=== PATIENT | female | born 1980 | race American Indian/Alaskan Native ===

== ENCOUNTER 2017-06-22 09:46 | Inpatient (IN) | payer BC, OTHER ==
[~2017-06-22 09:46] MED LIST: PRENATAL VITAMIN PO
--- NOTE | 2017-07-10 08:48 | NUR ---
07/10/17 0848 Tamie Flores 0840- PT ARRIVED TO PACU. MAINTAINING OWN AIRWAY. DENIES PAIN AND NAUSEA
--- NOTE | 2017-07-11 09:16 | PR ---
[facility] [address] [facility] [place], [place] [address] Signed PP Progress Notes Datetime Report Generated by CPN: 07/11/2017 09:16 SUBJECTIVE: [id number] Pain: Within normal limits Nausea/Vomiting: Denies Flatus: No Bowel Movement: No Vital Signs: [id number] Vital Signs: Reviewed; Within Normal Limits EXAM: [id number] Cardiovascular: Normal Respiratory: Normal Abdomen/Uterus: Normal Lochia: Normal Vulva/Perineum: Normal Breasts: Normal CVA Tenderness: Normal Extremities: Normal Incision: Normal Progress: Normal IMPRESSION/PLAN/PROCEDURES: [id number] Impression: Normal progression Plan: Continue present management Procedures: None Progress Notes: anemia noted hct 28. Patient without symptoms other than fatigue Signing Physician: Julieth Leo MD CC: *Electronically Signed* 07/11/17915 JULIETH LEO MD PATIENT NAME: ALINE GUZMAN PROGRESS NOTE DATE OF : 84 PHYSICIAN: JULIETH LEO MD RPT #: [id number] REPORT IS CONFIDENTIAL AND NOT TO BE RELEASED WITHOUT AUTHORIZATION
--- NOTE | 2017-07-12 06:36 | PR ---
[facility] [address] [facility] [place], [place] [address] Signed PP Progress Notes Datetime Report Generated by CPN: 07/12/2017 06:36 SUBJECTIVE: [id number] Pain: Within normal limits Nausea/Vomiting: Denies Flatus: Yes Bowel Movement: No Vital Signs: [id number] Vital Signs: Reviewed; Within Normal Limits EXAM: [id number] Cardiovascular: Normal Respiratory: Normal Abdomen/Uterus: Normal Lochia: Normal Vulva/Perineum: Normal Breasts: Normal CVA Tenderness: Normal Extremities: Normal Incision: Normal Progress: Normal IMPRESSION/PLAN/PROCEDURES: [id number] Impression: Normal progression Plan: Remove hermes; Discharge Procedures: None Progress Notes: patient doing well. Wanting to go home. Signing Physician: Julieth Leo MD CC: *Electronically Signed* 07/12/17 0636 JULIETH LEO MD PATIENT NAME: ALINE GUZMAN PROGRESS NOTE DATE OF : 84 PHYSICIAN: JULIETH LEO MD RPT #: [id number] REPORT IS CONFIDENTIAL AND NOT TO BE RELEASED WITHOUT AUTHORIZATION
--- NOTE | 2017-07-21 12:56 | OR ---
[facility] [address] [place], [place] [address] Signed DATE OF OPERATION: 07/10/2017 SURGEON: Julieth Bowman MD PREOPERATIVE DIAGNOSIS: This is a 37-year-old, 3, para 4, at 39 weeks and 3 days estimated gestational age, with polyhydramnios. POSTOPERATIVE DIAGNOSIS: This is a 37-year-old, 3, para 4, at 39 weeks and 3 days estimated gestational age, with polyhydramnios, and large for gestational age . SURGERY: Repeat low transverse section. ANESTHESIA: Spinal per Maddy Singletary CRNA SENIOR PROPERTY MANAGER SURGEON: Hernán Henao MD IV FLUIDS IN: 1800 mL of lactated Ringer's. URINE OUTPUT: 150 mL with Courtney draining to gravity. ESTIMATED BLOOD LOSS: 600 mL. PROCEDURE TECHNIQUE: The patient was taken back to the operating room with IV fluids hanging. She had spinal anesthesia placed and she was then placed on the operating table in supine position with the left lateral tilt. A Courtney catheter was then placed under sterile technique and she was prepped and draped in the normal sterile fashion. A Pfannenstiel skin incision was made after assuring good anesthesia through the old scar and carried down through the subcutaneous tissue to kike the fascia and the midline fascia was noted to be thick and scarred. Bovie cautery was used to cauterize areas of bleeding and the curved Mayos were used to incise the fascia and extend the incision laterally. Vianca clamps were then used to grasp the inferior edge of the fascia tented up and away from the muscles and Electronically Signed By: JULIETH BOWMAN MD 07/21/17 1256 PATIENT NAME: ALINE GUZMAN OPERATIVE REPORT DATE OF : 84 PHYSICIAN: JULIETH BOWMAN MD REPORT #: [id number] REPORT IS CONFIDENTIAL AND NOT TO BE RELEASED WITHOUT AUTHORIZATION [facility] [address] [place], [place] [address] Signed separate that wrapper layer and examiner soft work with the Carpenter scissors from the rectus abdominis muscles. The same was performed superiorly and again of note, the fascia was quite scarred and thickened. The rectus abdominis muscles were then in the midline. Peritoneum was easily identified, grasped with a mosquito clamps and entered with Metzenbaum scissors. That incision was extended superiorly and then inferiorly. Once the peritoneum was noted, it was opened, it was then stretched, and the Derrick retractor was placed into that incision and tying down against the anterior abdominal wall. It was then noted that there was a band of tissue from the peritoneum to the fundus of the uterus, which was released via excision. The bladder was noted to be scarred very high up onto the uterus, and Metzenbaum scissors were used to release some of that scarring and pushed the bladder down away from the lower uterine segment by incising the fascial plane. A scalpel was then used to incise the lower uterine segment. Once it was incised through to the amniotic sac, which ruptured at the time of incision, incision was extended using blunt resection. Baby's head presented in the ROP position and loose nuchal cord was reduced. Baby was delivered. Bulb suctioned. Cord clamped and cut, and the baby passed off to awaiting pediatric nurse and was noted to be quite vigorous. Once that was done, the cord blood was drawn and sent and attention was turned to the placenta, which was removed manually. Dry laparotomy sponges were used to clear out the uterine cavity. T clamps were placed on the apices of the uterus of the incision and the uterus was reapproximated with 0 Monocryl in a continuous running locked fashion. A second layer was placed using a vertical mattress type stitch, again to achieve good hemostasis and imbricate the first layer. There were areas that continued to bleed and ooze, which were oversewn with multiple [id number]. Hemostasis was achieved ultimately, and Bovie was used to further help with that. Pelvis was then irrigated with normal saline and the Derrick retractor then removed. Two Patricia retractors were placed into the site of the incision and an Acell graft was placed over the incision after utilizing . The peritoneum was then grasped with Nevin x3 and reapproximated with 2-0 Vicryl in a continuous running fashion. Good hemostasis was achieved on that layer. The rectus abdominis muscles were then inspected for hemostasis and found to have areas of oozing, which were controlled with cautery. 0 Vicryl was then used to reapproximate the rectus abdominis muscles and Acell powder was then sprinkled over that layer for good hemostasis as well and to help promote healing. The fascia was then reapproximated with 0 Vicryl in a continuous running fashion. The right apex to midline and from the left apex to the midline. Good hemostasis was achieved, and attention was turned to the subcutaneous layer, which was irrigated with normal saline. Areas of oozing were controlled with cautery and Acell powder was then sprinkled on that layer as well, and the tissue was reapproximated with 3-0 Vicryl in a continuous running fashion. The skin itself was reapproximated with stainless steel hermes and a pressure dressing was then placed over the incision. Uterus was expressed of all clot and debris, and the patient went to recovery room in stable condition. All sponge, lap, needle, and instrument counts were correct. There were no complication. The baby had remained in the room with both parents, and findings of baby were: Electronically Signed By: JULIETH BOWMAN MD 07/21/17 1256 PATIENT NAME: ALINE GUZMAN OPERATIVE REPORT DATE OF : 84 PHYSICIAN: JULIETH BOWMAN MD REPORT #: [id number] REPORT IS CONFIDENTIAL AND NOT TO BE RELEASED WITHOUT AUTHORIZATION [facility] [address] [place] [id number] Signed 1. LGA boy in the ROP position with loose nuchal cord. 2. Scarring of the peritoneum to the bladder and uterus. Again, there were no complications. The patient went to recovery room in stable condition. Julieth Bowman MD JKM/MODL /[id number] Electronically Signed By: JULIETH BOWMAN MD 07/21/17 1256 PATIENT NAME: ALINE GUZMAN OPERATIVE REPORT DATE OF : 84 PHYSICIAN: JULIETH BOWMAN MD REPORT #: [id number] REPORT IS CONFIDENTIAL AND NOT TO BE RELEASED WITHOUT AUTHORIZATION
== END 2017-07-12 11:45 | disposition home or self-care (01) | DRG 766 ==
LOC: FBC 07-10 05:34
PROVIDERS: ADMIT Obstetrics & Gynecology
PROC: 10D00Z1 Extraction of Products of Conception, Low, Open Approach (ICD-10-PCS; principal; 2017-07-10 06:45)
DX: O34.211 Maternal care for low transverse scar from previous cesarean delivery (principal); O36.63X0 Maternal care for excessive fetal growth, third trimester, not applicable or unspecified; O75.82 Onset (spontaneous) of labor after 37 completed weeks of gestation but before 39 completed weeks gestation, with delivery by (planned) cesarean section; Z3A.39 39 weeks gestation of pregnancy; Z37.0 Single live birth
CPT/HCPCS: 01961; 36415; 85027; C1763; J0690; J1100; J1885; J2274; J2300; J2370; J2590; J3010; J7040; J7120

== ENCOUNTER 2018-12-28 14:38 | Day surgery (SDC) | payer BC, OTHER ==
[~2018-12-28] VITALS: Ht 172.7 cm; Wt 113.4 kg
--- NOTE | 2018-12-28 13:51 | NUR ---
[facility] 6 L VIA MASK. PT RESPONSIVE TO VERBAL STIMULUS AND DENIES PAIN/NAUSEA. CARPAL TUNNEL RELEASE WITH BEIR BLOCK AND MAC ANESTHESIA. VSS. DRESSING C/D/I
[~2018-12-28 14:38] MED LIST changes: +GABAPENTIN300 MG PO; +HYDROCODON-ACE1 EA10 PO
--- NOTE | 2019-01-01 16:34 | OR ---
[facility] [address] [place], [place] [address] Signed DATE OF OPERATION: 12/28/2018 SURGEON: Nelly Carrillo MD PREOPERATIVE DIAGNOSIS: Carpal tunnel syndrome, right. POSTOPERATIVE DIAGNOSIS: Carpal tunnel syndrome, right. PROCEDURE PERFORMED: Right carpal tunnel release. ANESTHESIA: [place] block. CHECKER/STOCKER: None. TOURNIQUET TIME: 20 minutes. BRIEF HISTORY: Aline is a 38-year-old female with carpal tunnel by exam and nerve conduction studies. Risks and benefits of operative treatment discussed with her. She elected to proceed. DESCRIPTION OF PROCEDURE: Once consent was obtained, she was taken to the operating room. After adequate anesthesia, she was placed on operating room table. All downside pressure points were well padded. The arm was prepped and draped in a standard sterile fashion and 1.5 cm incision was made in the distal wrist crease, carried through skin and subcutaneous tissue. The palmaris longus was identified, retracted and protected. Under loupe magnification, we were able to dissect free the overlying soft tissue of the transverse carpal ligament. It was then released proximally and distally to the distal extent. This was palpated and found to be completely released. The wound was copiously irrigated with antibiotic solution, closed with 3-0 nylon and dressed with bacitracin, Adaptic, 4 x 8 gauze. 5 mL of 0.25% plain Marcaine was infiltrated to the skin at the end. She tolerated the procedure well. All sponge, needle, and instrument counts correct. Electronically Signed By: NELLY CARRILLO MD 01/01/19 1634 PATIENT NAME: ALINE GUZMAN OPERATIVE REPORT DATE OF : 84 REPORT #: [id number] PHYSICIAN: NELLY CARRILLO MD PCP: [facility] REPORT IS CONFIDENTIAL AND NOT TO BE RELEASED WITHOUT AUTHORIZATION [address] [place], [place] [address] Signed Nelly Carrillo MD BA/MODL /[id number] Copies: ~ Electronically Signed By: NELLY CARRILLO MD 01/01/19 1634 PATIENT NAME: ALINE GUZMANN OPERATIVE REPORT DATE OF : 84 REPORT #: [id number] PHYSICIAN: NELLY CARRILLO MD PCP: [facility] REPORT IS CONFIDENTIAL AND NOT TO BE RELEASED WITHOUT AUTHORIZATION
== END 2018-12-28 14:40 | disposition home or self-care (01) ==
LOC: OPS 14:38 → DS 01-04 13:00 → OPS 01-04 13:00
PROVIDERS: Specialist
PROC: 01N50ZZ Release Median Nerve, Open Approach (ICD-10-PCS; principal; 2018-12-28 13:00)
DX: G56.01 Carpal tunnel syndrome, right upper limb (principal); E66.9 Obesity, unspecified; F17.210 Nicotine dependence, cigarettes, uncomplicated; Z68.37 Body mass index [BMI] 37.0-37.9, adult
CPT/HCPCS: 01810; J0690; J2250; J2704; J3010; J7120

== ENCOUNTER 2021-11-01 13:40 | Inpatient (IN) | payer BC ==
[~2021-11-01] VITALS: Ht 172.7 cm; Wt 126.6 kg
--- NOTE | 2021-11-08 19:54 | OR ---
[facility] [address] [place] [address] Signed DATE OF OPERATION: 11/08/2021 SURGEON: Electronically Signed By: ROSARIO MILIAN DO 11/08/211953 PATIENT NAME: THOMASALINE CIARA OPERATIVE REPORT DATE OF : 84 REPORT #: [id number] PHYSICIAN: ROSARIO MILIAN DO PCP: [facility] REPORT IS CONFIDENTIAL AND NOT TO BE RELEASED WITHOUT AUTHORIZATION [facility] [address] [place] [address] Signed Rosario Milian DO PROCEDURE: Repeat low-transverse . KARATE TEACHER: Deepa Gates M.D. PREOPERATIVE DIAGNOSES: 1. History of prior x3. 2. 39 weeks' gestation. 3. Polyhydramnios. 4. Advanced maternal age. 5. Obesity. 6. renal pyelectasis. POSTOPERATIVE DIAGNOSES: 1. History of prior x3. 2. Term Delivered 3. Polyhydramnios. 4. Advanced maternal age. 5. Obesity. 6. renal pyelectasis ANESTHESIA: Spinal. ESTIMATED BLOOD LOSS: 750 mL. FINDINGS: Viable male term , weighing 8 pounds 6 ounces with Apgars 9 and 9 at one and five minutes, respectively. Uterus with numerous filmy adhesions to anterior abdominal wall and the bladder. Otherwise, minimal scarring from prior C-sections was noted. Normal-appearing bilateral tubes and ovaries. INDICATIONS FOR THE PROCEDURE: The patient is a 41-year-old, G5, P4-0-0-4, at 39 1/7 weeks gestation who arrived for scheduled repeat . Of note, this is her fourth delivery. Risks, benefits, and alternatives were discussed and she elected to proceed. Electronically Signed By: ROSARIO MILIAN DO 11/08/211953 PATIENT NAME: ALINE GUZMAN OPERATIVE REPORT DATE OF : 84 REPORT #: [id number] PHYSICIAN: ROSARIO MILIAN DO PCP: [facility] REPORT IS CONFIDENTIAL AND NOT TO BE RELEASED WITHOUT AUTHORIZATION [address] [address] Signed DESCRIPTION OF PROCEDURE: The patient was taken back to the operating room, where she was given 3 g Ancef. Spinal anesthesia was placed and she was positioned in supine position with a leftward tilt. Courtney catheter was placed, SCDs were placed, and she was prepped and draped in normal sterile fashion. Pfannenstiel skin incision was made through her prior scar carried through to the underlying layer of fascia. perforating vessels were cauterized with Bovie cautery as they were encountered. The fascia was incised at midline and extended laterally with Carpenter scissors. Inferior margin of fascia was grasped and elevated with Vianca clamps, underlying rectus muscle was dissected off bluntly and sharply with Carpenter scissors, this was then released. Superior margin of fascia in the similar manner was grasped, and elevated. Underlying rectus muscles dissected off bluntly and sharply with Carpenter scissors with minimal scarring encountered, and was released. Rectus muscle was at midline with significant difficulty, underlying peritoneum was grasped with hemostats, elevated, and incised sharply with Carpenter scissors. This was extended with lateral traction superiorly and inferiorly carefully due to concern for bladder adhesions. Derrick retractor was placed after the superior most anterior abdominal wall to anterior uterine adhesion was cauterized with Bovie with resulting hemostasis. Hysterotomy was made with a scalpel and copious amounts of clear fluid were expressed. Infant's head was easily delivered through the hysterotomy, followed by shoulders and remainder of body. Baby gave a strong and spontaneous cry immediately upon delivery. Cord was doubly clamped and cut, baby was handed off to waiting nursery team. Segment of cord was collected and cord blood was collected for type and Uma. Placenta was expressed manually and noted to be intact with a centrally inserted three-vessel cord. Uterus was cleared of clots and debris. Uterus was closed in a double-layer closure with 0-Monocryl first in a running locked fashion, second in an imbricating manner. Of note, persistent oozing was noted near the right apex and an [place] stitch was placed around the right uterine artery with resulting hemostasis. The pelvis was suction irrigated with warm sterile saline and tubes and ovaries were inspected with normal findings as noted above. Manisha powder was applied over the hysterotomy and both apices. After excellent hemostasis was ensured, Derrick retractor was removed and peritoneum was closed with 2-0 Vicryl in a running fashion. Rectus muscle was noted to have significant oozing at midline and superiorly. Pulsating vessel was noted, grasped with a hemostat and suture-ligated with 0-Vicryl with Electronically Signed By: ROSARIO MILIAN DO 11/08/211953 PATIENT NAME: ALINE GUZMAN OPERATIVE REPORT DATE OF : 84 REPORT #: [id number] PHYSICIAN: ROSARIO MILIAN DO PCP: [facility] REPORT IS CONFIDENTIAL AND NOT TO BE RELEASED WITHOUT AUTHORIZATION [facility] [address] [place], [place] [address] Signed resulting hemostasis. Rectus muscle was then reapproximated at midline with 0-Vicryl in a simple interrupted fashion. The rectus was suction irrigated with warm sterile saline. Excellent hemostasis was noted. Fascia was closed with 0-Vicryl in a simple running fashion, working first from right apex to midline, then from left apex to midline meeting in the middle with two sutures. The subcutaneous layer was inspected and perforating vessels were cauterized with Bovie cautery. Remaining Manisha powderwas applied to the subcutaneous layer with excellent hemostasis resulting. Subcutaneous tissue was reapproximated with 3-0 Vicryl in a running manner and skin was closed with skin clips. All sponge and instrument counts were correct, and the patient was taken to LDRP room in stable and satisfactory condition for recovery skin to skin with her baby. DO MAGDIEL Cuenca/YOSVANYL /[id number] Copies: ~ Electronically Signed By: ROSARIO MILIAN DO 11/08/21 1954 PATIENT NAME: ALINE GUZMAN OPERATIVE REPORT DATE OF : 84 REPORT #: [id number] PHYSICIAN: ROSARIO MILIAN DO PCP: [facility] REPORT IS CONFIDENTIAL AND NOT TO BE RELEASED WITHOUT AUTHORIZATION
--- NOTE | 2021-11-10 08:43 | PR ---
[facility] [address] [place], [place] [address] Signed PP Progress Notes Datetime Report Generated by CPLatia: 11/10/2021 08:43 SUBJECTIVE: [id number] Pain: Within Normal Limits Nausea/Vomiting: Denies Flatus: Yes Bowel Movement: No Vital Signs: [id number] Vital Signs: Reviewed; Within Normal Limits EXAM: Ongoing Cardiovascular: Normal Respiratory: Normal Abdomen/Uterus: Normal Lochia: Normal Vulva/Perineum: Not Done Breasts: Not Done CVA Tenderness: Normal Extremities: Normal Incision: Normal Progress: Normal Exam Comments: NAD RRR No dyspnea/ retractions Abd SNTND Incision c/d/i Ext: Trace edema, SCDs in place, neg Carla's BL IMPRESSION/PLAN/PROCEDURES: [id number] Impression: Normal Progression Plan: Continue Present Management; Discharge Procedures: None Progress Notes: Pt is a 41 yo POD #2 s/p RLTCS -hgb 8.8 POD#1 from 12.8 on admission -progressing well . Pain well-controlled on orals, ambulating/ voiding/ tolerating regular diet, +flatus though no BM yet. Requesting DC to home today -prefers minipill for contraception Signing Physician: Rosario Milian DO *Electronically Signed* 11/10/21 0843 ROSARIO MILIAN DO PATIENT NAME: ALINE GUZMAN PROGRESS NOTE DATE OF : 84 PHYSICIAN: ROSARIO MILIAN DO RPT #: [id number] REPORT IS CONFIDENTIAL AND NOT TO BE RELEASED WITHOUT AUTHORIZATION [address] [place], [place] [address] Signed Copies: ~ *Electronically Signed* 11/10/21 0843 ROSARIO MILIAN DO PATIENT NAME: ALINE GUZMAN PROGRESS NOTE DATE OF : 84 PHYSICIAN: ROSARIO MILIAN DO RPT #: [id number] REPORT IS CONFIDENTIAL AND NOT TO BE RELEASED WITHOUT AUTHORIZATION
== END 2021-11-10 12:50 | disposition home or self-care (01) | DRG 788 ==
LOC: FBC 11-08 05:30
PROVIDERS: ADMIT Obstetrics & Gynecology; ATTEND Obstetrics & Gynecology
PROC: 10D00Z1 Extraction of Products of Conception, Low, Open Approach (ICD-10-PCS; principal; 2021-11-08 06:45)
DX: O34.211 Maternal care for low transverse scar from previous cesarean delivery (principal); E66.9 Obesity, unspecified; Z3A.39 39 weeks gestation of pregnancy; Z37.0 Single live birth; O40.3XX0 Polyhydramnios, third trimester, not applicable or unspecified; O66.3 Obstructed labor due to other abnormalities of fetus; O99.214 Obesity complicating childbirth; Z20.822 Contact with and (suspected) exposure to COVID-19
CPT/HCPCS: 01961; 36415; 85027; 86850; 86900; 86901; A9270; C9803; J0131; J0690; J1650; J1885; J2001; J2274; J2370; J2405; J2550; J2590; J3010; J7040; J7121; U0003